=== PATIENT | female | born 1940 | race Caucasian/White ===

== ENCOUNTER 2018-01-17 18:14 | Emergency (ER) | payer OTHER ==
--- OUTSIDE RECORDS SUMMARY | 2018-01-17 18:17 | XMS REPORT ---
:1940 Author Organization [employer] Care Team Providers Name Role Phone Mosher, Na Provider Role Unavailable Allergies, Adverse Reactions, Alerts Substance Reaction Event Type N.K.D.A. 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 Active inadequate dietary iron intake Problem CKD (chronic kidney disease) stage N18.2 Active 2, GFR 60-89 ml/min Problem Type 2 diabetes mellitus with other E11.69 Active specified complication Problem White coat syndrome with diagnosis I10 Active of hypertension Problem Allergic rhinitis J30.9 Active Problem Hypertensive urgency I16.0 Active Problem HTN (hypertension), benign I10 Active Problem CKD (chronic kidney disease) stage N18.3 Active 3, GFR 30-59 ml/min Problem Diabetes E11.9 Active Problem CHF (congestive heart failure) I50.9 Active Assessment CHF (congestive heart failure) I50.9 Active Assessment HTN (hypertension), benign I10 Active Assessment CKD (chronic kidney disease) stage N18.3 Active 3, GFR 30-59 ml/min Assessment Microalbuminuria R80.9 Active Assessment 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 Active inadequate dietary iron intake Assessment Type 2 diabetes mellitus with other E11.69 Active specified complication Assessment Hypertensive urgency I16.0 Active Assessment Hyperlipidemia, unspecified E78.5 Active Problem Hyperlipidemia, unspecified E78.5 Active Medications Medication Code Code Instructions Start End Status Dosage System Date Date Diltiazem HCl ND 97730424244 120 MG Orally Active 1 capsule ER Twice a day HydrALAZINE HCl ND 32842806508 10 MG Orally Active 1 tablet twice a day with food Klor-Con M20 ND 07679809779 20 MEQ Orally Active 1 tablet Once a day with food GlipiZIDE ND 97306962356 5 MG Orally Nov 08, Active 1/2 tablet Once a day 2017 Lisinopril ND 54566790806 40 MG Orally Active 1 tablet Once a day HydrALAZINE HCl ND 53070164400 25 MG Orally Nov 08, Active 1 tablet Three times a 2018 with food, day hold if sbp less 140 Metoprolol [facility][NOTE 3] 21054011510 100 MG Orally Active 1 tablet Tartrate Twice a day with food Famotidine [facility][NOTE 3] 48448568684 20 MG Orally Active 1 tablet Once a day at bedtime Lipitor [facility][NOTE 3] 51010885285 20 MG Orally Active 1 tablet Once a day Plavix [facility][NOTE 3] 12391121474 75 MG Orally Active not defined Lasix [facility][NOTE 3] 59504538728 40 MG Orally Active 1 tablet Once a day HydrALAZINE HCl [facility][NOTE 3] 11687991049 10 Inactive TAKE 1 TABLET BY MOUTH TWICE DAILY WITH FOOD Results No Known Results Summary Purpose eClinicalWorks Submission
[2018-01-17] MEDS ORDERED: HYDROCODONE/APAP 5/325 MG TAB ONE ×2 (19:15→20:12)
[2018-01-17] MEDS ORDERED: cloNIDine HCl 0.1 MG TAB ONE ×2 (20:12→21:16)
--- NOTE | 2018-01-17 20:34 | RAD REPORT ---
EXAM DESCRIPTION: RAD - Shoulder Left 2 View - 01/17/2018 7:59 pm CLINICAL HISTORY: Fall, left shoulder pain COMPARISON: None. TECHNIQUE: Internal and external rotation views of the left shoulder were obtained. FINDINGS: No fracture or dislocation of the proximal humerus identifiable. Comminuted fracture of th e lateral clavicle noted. The AC joint remains intact. No AC dislocation. Acromial humeral joint spac e is normal. There are multiple fracture fragments along the oblique fracture plane. No pathologic ted ne process. IMPRESSION: Comminuted fracture of the lateral clavicle. Multiple displaced fracture fragments noted . AC joint remains intact.
--- NOTE | 2018-01-17 22:04 | ER ---
Nurse's Notes [facility] Name: Becky Duncan Age: 77 yrs Sex: Female : 1940 Arrival Date: 01/17/2018 Time: 18:18 Bed 27 Private MD: Deepali Mosher Diagnosis: Fracture of unspecified part of left clavicle-comminuted fracture of left lateral clavicle Presentation: 01/17 18:27 Presenting complaint: Patient states: i fell from a standing position and hurt my L hj shoulder; denies hitting head and LOC; denies numbness and tingling; pain is 10/10;. Transition of care: patient was not received from another setting of care. Onset of symptoms was January 17, 2018. Risk Assessment: Do you want to hurt yourself or someone else? Patient reports no desire to harm self or others. Initial Sepsis Screen: Does the patient meet any 2 criteria? No. Patient's initial sepsis screen is negative. Does the patient have a suspected source of infection? No. Patient's initial sepsis screen is negative. Care prior to arrival: None. 18:27 Method Of Arrival: Ambulatory 18:27 Acuity: STACI 4 hj Triage Assessment: 18:30 General: Appears in no apparent distress. uncomfortable, Behavior is calm, cooperative, hj appropriate for age. Pain: Complains of pain in anterior aspect of left shoulder. Historical: - Allergies: 18:29 Dairy Aid; hj 18:29 Wheat/glutens; hj 18:29 Procardia; hj - PMHx: 18:29 CHF; Diabetes - NIDDM; Hypertension; hj - PSHx: 18:29 Heart stents; hj - Immunization history:: Adult Immunizations up to date. - Social history:: Smoking status: Patient/guardian denies using tobacco, Patient/guardian denies using alcohol. - Ebola Screening: : Patient negative for fever greater than or equal to 101.5 degrees Fahrenheit, and additional compatible Ebola Virus Disease symptoms Patient denies exposure to infectious person Patient denies travel to an Ebola-affected area in the 21 days before illness onset. Screenin:32 Abuse screen: Denies threats or abuse. Denies injuries from another. Nutritional hj screening: No deficits noted. Tuberculosis screening: No symptoms or risk factors identified. Fall Risk None identified. Assessment: 20:00 General: Appears in no apparent distress. comfortable, Behavior is calm, cooperative. mg2 Pain: Complains of pain in left clavicle and left arm. Neuro: Level of Consciousness is awake, alert, obeys commands, Oriented to person, place, time, situation. Cardiovascular: Capillary refill < 3 seconds Patient's skin is warm and dry. Respiratory: Airway is patent Respiratory effort is even, unlabored, Respiratory pattern is regular, symmetrical. GI: No signs and/or symptoms were reported involving the gastrointestinal system. : No signs and/or symptoms were reported regarding the genitourinary system. EENT: No signs and/or symptoms were reported regarding the EENT system. Derm: Skin is intact, is healthy with good turgor, Skin is pink, warm \T\ dry. normal. Musculoskeletal: Capillary refill < 3 seconds. Injury Description: left clavicular fracture. Vital Signs: 18:31 BP 233 / 97; Pulse 74; Resp 18; Temp 98.1(TE); Pulse Ox 99% on R/A; Weight 62.6 kg; hj Height 5 ft. 0 in. (152.40 cm); Pain 10/10; 19:53 BP 249 / 82; Pulse 70; Resp 18; Pulse Ox 97% on R/A; mg2 21:00 BP 240 / 73; Pulse 62; Resp 18; Pulse Ox 100% ; Pain 4/10; mg2 22:04 BP 238 / 81; Pulse 62; Resp 18; Pulse Ox 100% on R/A; Pain 4/10; mg2 18:31 Body Mass Index 26.95 (62.60 kg, 152.40 cm) ED Course: 18:18 Patient arrived in ED. mr 18:18 Deepali Mosher MD is Private Physician. mr 18:28 Triage completed. hj 18:32 Arm band placed on right wrist. hj 18:32 Patient has correct armband on for positive identification. Bed in low position. Call light in reach. Side rails up X 1. Adult w/ patient. 18:58 Bubba Logan NP is PHCP. pm1 19:07 Turner Soriano, TADEO is Primary Nurse. mg2 19:26 Hudson Melendez MD is Attending Physician. pm1 19:59 Shoulder Left (2 View) XRAY In Process Unspecified. EDMS 22:23 No provider procedures requiring assistance completed. Patient did not have IV access mg2 during this emergency room visit. Sling applied to left arm. Administered Medications: 19:09 Drug: [place] 5 mg-325 mg 1 tabs Route: PO; mg2 20:09 Follow up: Response: No adverse reaction mg2 20:09 Drug: [place] 5 mg-325 mg 1 tabs Route: PO; mg2 21:12 Follow up: Response: No adverse reaction; Blood pressure is unchanged mg2 20:10 Drug: cloNIDine 0.1 mg Route: PO; mg2 21:13 Follow up: Response: No adverse reaction; Blood pressure is unchanged mg2 21:11 Drug: cloNIDine 0.2 mg Route: PO; mg2 22:24 Follow up: Response: No adverse reaction; Blood pressure is lowered mg2 22:04 Drug: morphine 4 mg Route: IM; Site: right gluteus; mg2 22:24 Follow up: Response: No adverse reaction; Medication administered at discharge. mg2 Outcome: 22:03 Discharge ordered by MD. pm1 22:23 Discharged to home via wheelchair. mg2 22:23 Condition: stable 22:23 Discharge instructions given to patient, family, Instructed on discharge instructions, follow up and referral plans. medication usage, Demonstrated understanding of instructions, follow-up care, medications, Prescriptions given X 1. 22:24 Patient left the ED. mg2 Signatures: Dispatcher [employer] CHEKO Jesse Lovely Eliel Bryant, RN RN hj Bubba Logan, BRAIN CASINO SHIFT MANAGER pm1 Turner Soriano RN RN mg2 Corrections: (The following items were deleted from the chart) 18:33 18:31 Pulse 74bpm; Resp 18bpm; Pulse Ox 99% RA; Temp 98.1F Temporal; 62.6 kg; Height 5 hj ft. 0 in.; BMI: 26.9; Pain 10/10; hj
--- NOTE | 2018-01-17 22:05 | EDPHYS ---
Physician Documentation [facility] Name: Becky Duncan Age: 77 yrs Sex: Female : 1940 Arrival Date: 01/17/2018 Time: 18:18 Bed 27 Private MD: Deepali Mosher ED Physician Hudson Melendez HPI: 01/17 21:24 This 77 yrs old Female presents to ER via Ambulatory with complaints of Fall pm1 Injury, Left Shoulder Injury. 21:24 Details of fall: The patient fell from an upright position, while standing. Onset: The pm1 symptoms/episode began/occurred just prior to arrival. Associated injuries: The patient sustained anterior aspect of left shoulder. Severity of symptoms: in the emergency department the symptoms are unchanged. The patient has not experienced similar symptoms in the past. Patient was bending over to put a glass of water on a stool, lost her balance and fell forward. She hit her left shoulder on the floor and is presenting her with left shoulder pain. No LOC, headache, head injury, neck pain, vomiting. Historical: - Allergies: 18:29 Dairy Aid; hj 18:29 Wheat/glutens; hj 18:29 Procardia; hj - PMHx: 18:29 CHF; Diabetes - NIDDM; Hypertension; hj - PSHx: 18:29 Heart stents; hj - Immunization history:: Adult Immunizations up to date. - Social history:: Smoking status: Patient/guardian denies using tobacco, Patient/guardian denies using alcohol. - Ebola Screening: : Patient negative for fever greater than or equal to 101.5 degrees Fahrenheit, and additional compatible Ebola Virus Disease symptoms Patient denies exposure to infectious person Patient denies travel to an Ebola-affected area in the 21 days before illness onset. ROS: 21:24 Constitutional: Negative for fever, chills, and weight loss, Eyes: Negative for injury, pm1 pain, redness, and discharge, ENT: Negative for injury, pain, and discharge, Neck: Negative for injury, pain, and swelling, Cardiovascular: Negative for chest pain, palpitations, and edema, Respiratory: Negative for shortness of breath, cough, wheezing, and pleuritic chest pain, Abdomen/GI: Negative for abdominal pain, nausea, vomiting, diarrhea, and constipation, Back: Negative for injury and pain, : Negative for injury, bleeding, discharge, and swelling. 21:24 Skin: Negative for injury, rash, and discoloration, Neuro: Negative for headache, weakness, numbness, tingling, and seizure. 21:24 MS/extremity: Positive for pain, of the anterior aspect of left shoulder, Negative for decreased range of motion, deformity. Exam: 21:24 Constitutional: This is a well developed, well nourished patient who is awake, alert, pm1 and in no acute distress. Head/Face: Normocephalic, atraumatic. Eyes: Pupils equal round and reactive to light, extra-ocular motions intact. Lids and lashes normal. Conjunctiva and sclera are non-icteric and not injected. Cornea within normal limits. Periorbital areas with no swelling, redness, or edema. ENT: Nares patent. No nasal discharge, no septal abnormalities noted. Tympanic membranes are normal and external auditory canals are clear. Oropharynx with no redness, swelling, or masses, exudates, or evidence of obstruction, uvula midline. Mucous membranes moist. Neck: Trachea midline, no thyromegaly or masses palpated, and no cervical lymphadenopathy. Supple, full range of motion without nuchal rigidity, or vertebral point tenderness. No Meningismus. Chest/axilla: Normal chest wall appearance and motion. Nontender with no deformity. No lesions are appreciated. Cardiovascular: Regular rate and rhythm with a normal S1 and S2. No gallops, murmurs, or rubs. Normal PMI, no JVD. No pulse deficits. Respiratory: Lungs have equal breath sounds bilaterally, clear to auscultation and percussion. No rales, rhonchi or wheezes noted. No increased work of breathing, no retractions or nasal flaring. Abdomen/GI: Soft, non-tender, with normal bowel sounds. No distension or tympany. No guarding or rebound. No evidence of tenderness throughout. Back: No spinal tenderness. No costovertebral tenderness. Full range of motion. Skin: Warm, dry with normal turgor. Normal color with no rashes, no lesions, and no evidence of cellulitis. Patient reports two old small scabs present on left shoulder area 21:24 Musculoskeletal/extremity: Extremities: grossly normal except: noted in the left clavicle: tenderness, There is no evidence of decreased ROM, to left shoulder. Vital Signs: 18:31 BP 233 / 97; Pulse 74; Resp 18; Temp 98.1(TE); Pulse Ox 99% on R/A; Weight 62.6 kg; hj Height 5 ft. 0 in. (152.40 cm); Pain 10/10; 19:53 BP 249 / 82; Pulse 70; Resp 18; Pulse Ox 97% on R/A; mg2 21:00 BP 240 / 73; Pulse 62; Resp 18; Pulse Ox 100% ; Pain 4/10; mg2 22:04 BP 238 / 81; Pulse 62; Resp 18; Pulse Ox 100% on R/A; Pain 4/10; mg2 18:31 Body Mass Index 26.95 (62.60 kg, 152.40 cm) hj MDM: 18:58 Patient medically screened. pm1 21:29 Data reviewed: vital signs. Data interpreted: Pulse oximetry: on room air is 97 %. pm1 Interpretation: normal. 22:00 Counseling: I had a detailed discussion with the patient and/or guardian regarding: the pm1 historical points, exam findings, and any diagnostic results supporting the discharge/admit diagnosis, the presence of at least one elevated blood pressure reading (>120/80) during this emergency department visit, radiology results, the need for outpatient follow up, to return to the emergency department if symptoms worsen or persist or if there are any questions or concerns that arise at home. ED course: patient reports that she has not taken some her home medications. She does not want to wait in the ER for her blood pressure to improve. She wants to go home but would like additional pain medication prior to leaving. 01/17 18:32 Order name: Shoulder Left (2 View) XRAY; Complete Time: 20:43 01/17 19:38 Order name: Sling; Complete Time: 19:39 pm1 Administered Medications: 19:09 Drug: [place] 5 mg-325 mg 1 tabs Route: PO; mg2 20:09 Follow up: Response: No adverse reaction mg2 20:09 Drug: [place] 5 mg-325 mg 1 tabs Route: PO; mg2 21:12 Follow up: Response: No adverse reaction; Blood pressure is unchanged mg2 20:10 Drug: cloNIDine 0.1 mg Route: PO; mg2 21:13 Follow up: Response: No adverse reaction; Blood pressure is unchanged mg2 21:11 Drug: cloNIDine 0.2 mg Route: PO; mg2 22:24 Follow up: Response: No adverse reaction; Blood pressure is lowered mg2 22:04 Drug: morphine 4 mg Route: IM; Site: right gluteus; mg2 22:24 Follow up: Response: No adverse reaction; Medication administered at discharge. mg2 Disposition: 01/18 04:28 Co-signature as Attending Physician, Hudson Melendez MD I agree with the assessment and tw4 plan of care. Disposition: 01/17/18 22:03 Discharged to Home. Impression: Fracture of unspecified part of left clavicle - comminuted fracture of left lateral clavicle. - Condition is Stable. - Discharge Instructions: Clavicle Fracture, How to Use a Sling. - Prescriptions for Tramadol 50 mg Oral Tablet - take 1 tablet by ORAL route every 8 hours as needed; 20 tablet. - Medication Reconciliation Form, Thank You Letter, Antibiotic Education, Prescription Opioid Use form. - Follow up: Emergency Department; When: As needed; Reason: Worsening of condition. Follow up: Private Physician; When: 2 - 3 days; Reason: Recheck today's complaints, Continuance of care, Re-evaluation by your physician. - Problem is new. - Symptoms have improved. Signatures: Dispatcher [employer] EDMS Eliel Lee RN RN hj Bubba Logan, HEAD PAPER TESTER HEAD PAPER TESTER pm1 Hudson Melendez MD MD tw4 Turner Soriano RN RN mg2 Corrections: (The following items were deleted from the chart) 01/17 22:24 22:03 01/17/2018 22:03 Discharged to Home. Impression: Fracture of unspecified part of mg2 left clavicle - comminuted fracture of left lateral clavicle. Condition is Stable. Forms are Medication Reconciliation Form, Thank You Letter, Antibiotic Education, Prescription Opioid Use. Follow up: Emergency Department; When: As needed; Reason: Worsening of condition. Follow up: Private Physician; When: 2 - 3 days; Reason: Recheck today's complaints, Continuance of care, Re-evaluation by your physician. Problem is new. Symptoms have improved. pm1
[2018-01-17] MEDS ORDERED: MORPHINE 2 MG/ML SYR ONE (22:09)
[2018-01-17 22:49] VITALS: TEMP 98.1
[2018-01-17 22:51] VITALS: O2SAT 100
[2018-01-17 22:52] VITALS: BP 238/81
== END 2018-01-17 22:24 | disposition home or self-care (01) ==
LOC: ER 18:14
DX: S42.035A Nondisplaced fracture of lateral end of left clavicle, initial encounter for closed fracture (principal); W18.39XA Other fall on same level, initial encounter; Y93.89 Activity, other specified; Y92.9 Unspecified place or not applicable; Z91.011 Allergy to milk products; Z91.018 Allergy to other foods; Z95.818 Presence of other cardiac implants and grafts; I10 Essential (primary) hypertension
CPT/HCPCS: 73030; 96372; 99284; J2270